=== PATIENT | female | born 1960 | race Caucasian/White ===

== ENCOUNTER 2018-12-10 06:57 | Day surgery (SDC) | payer BC ==
[~2018-12-10 06:57] MED LIST: CEFAZOLIN 2 Gram 2 GM/50 ML BAG IVPB ONE
[2018-12-10] MEDS ORDERED: MIDAZOLAM HCL 2MG/2ML VIAL IV ONE (06:58)
[2018-12-10] MEDS ORDERED: BUPIVACAINE LIPOSOME/PF 133MG/10ML VIAL IV ONE (06:58)
[2018-12-10] MEDS ORDERED: GLYCOPYRROLATE 0.2 MG/ML ML IV ONE (06:58)
[2018-12-10] MEDS ORDERED: BUPIVACAINE 0.5% (5MG/ML) PF 30ML VIAL IVP ONE (06:58)
[2018-12-10] MEDS ORDERED: DEXAMETHASONE 4 MG/ML 1ML VIAL IVP ONE (06:58)
[2018-12-10] MEDS ORDERED: LIDOCAINE 2% MDV (20MG/ML) 20ML VIAL IV ONE (06:58)
[2018-12-10] MEDS ORDERED: LABETALOL HCL 5MG/ML, 20ML VIAL IV ONE (06:58)
[2018-12-10] MEDS ORDERED: MORPHINE SULFATE PF 10MG/10ML *10ML VIAL IV ONE (06:58)
[2018-12-10] MEDS ORDERED: PROPOFOL 10 MG/ML VIAL IV ONE (06:58)
[2018-12-10] MEDS ORDERED: RINGERS SOLUTION,LACTATED 1,000 ML IV ONE (09:19)
[2018-12-10] MEDS ORDERED: BUPIVACAINE 0.5% W/EPI MPF 30 ML VIAL SQ ONE (10:03)
[2018-12-10] MEDS ORDERED: METHYLPREDNISOLONE 40MG/VIAL IU ONE (10:04)
[2018-12-10] MEDS ORDERED: MORPHINE SULFATE 5 MG/ML VIAL IM ONE (10:04)
--- NOTE | 2018-12-11 08:51 | Operative Note ---
DATE OF SURGERY: 12/10/2018 PREOPERATIVE DIAGNOSIS: Severe impingement, right shoulder. POSTOPERATIVE DIAGNOSES: 1. Complex superior glenohumeral labral tear. 2. Severe external impingement, right shoulder. 3. Advanced arthrosis, right distal clavicle. OPERATION: 1. Right shoulder arthroscopy with interarticular debridement. 2. Right shoulder open acromioplasty and CA ligament resection with subacromial bursectomy. 3. Right shoulder distal clavicle resection. STAFF SURGEON: Art Edmonds MD ANESTHESIA: Interscalene block with sedation. PREPARATION: Chloraprep. INDIVIDUAL CONSIDERATIONS: None. PROCEDURE: The patient was taken to the operating room, placed supine on the operating room table. She had a successful induction of a block. She was then placed in a semi-seated beach chair position and sedated. Her right arm and shoulder were prepped and draped in the usual fashion. Examination under anesthesia showed full passive motion and no instability. The patient had a posterior portal identified for arthroscopy. Skin was infiltrated with 0.5% Marcaine with epinephrine prior. An 18-gauge spinal needle was easily placed in the joint, and the joint was inflated with normal saline with a 60-mL syringe. A stab wound was made, and a blunt-tipped trocar for the scope was placed inside the joint. The joint was inflated with normal saline. An anterior accessory portal was then made just inferior to the intact long head of the biceps tendon in a retrograde fashion with a Wissinger rosaura, and the joint was irrigated out. The patient had an intact long head, intact subscap. Glenohumeral joint was normal. Fraying of the superior labrum was debrided with a shaver. No loose bodies. Some moderate synovitis anteriorly which was debrided. No loose bodies in the inferior pouch. The undersurface of the supraspinatus had some fraying but no distinct tear could be seen. The fraying was debrided with a shaver. After irrigation, portals were closed with singh. The patient had an anterior approach to the subacromial space and distal clavicle. Skin was infiltrated with 0.5% Marcaine with epinephrine prior. Sharp dissection carried down through skin and subcutaneous tissues. Small veins were coagulated with a Bovie. An anterior deltoid interval was developed. Care was taken not to split the deltoid more than about 4 cm distal to the anterior tip of the acromion to prevent injury to the axillary nerve. Once in the subacromial space, it was quite tight. The deltoid was then taken subperiosteally off the anterior aspect of the downsloping acromion with degeneration, over the top of the intact CA ligament, and off the anterior aspect of a highly degenerated acromioclavicular joint. CA ligament was resected with a Bovie. The advanced arthritic distal clavicle was resected taking about 8-9 mm. The patient had a huge spur with a downsloping anterior acromion with the spur directly digging into the rotator cuff. I did an acromioplasty taking a centimeter, most of this being a spur, and tapering towards posteromedially to include the spurs at the AC joint. The undersurface was smoothed with a rasp. A thick bursa was debrided out. I now had a good look at the rotator cuff. Basically, the biggest thing here was the anterior spur digging right into the anterior aspect of the supraspinatus. It was intact but had the appearance of being beaten with a meat tenderizing hammer! I now put the shoulder through a full range of motion to ensure no further impingement. After irrigation, the deltoid was reattached to the remaining acromion with multiple interrupted #2 Vicryl going directly through the bony acromion. The periosteal cuff of the distal clavicle was closed with running #2 Vicryl. Anterior deltoid interval was closed with running #1 Vicryl. Subcu was closed with 2-0 plus Vicryl and skin was closed with 3-0 quill. An 18-gauge spinal needle was introduced into the subacromial space. It was injected with 10 mL of 0.5% Marcaine with epinephrine along with 10 mg of morphine and 40 mg of Depo- Medrol. A sterile bulky compressive dressing and sling were applied. The patient tolerated the procedure well. Needle and sponge counts were correct. Estimated blood loss was minimal. She was taken back to recovery in good condition. There were no complications. NICOLE
== END 2018-12-10 11:20 | disposition home or self-care (01) ==
LOC: SUR 06:57
PROVIDERS: ATTEND Orthopaedic Surgery
DX: S43.431A Superior glenoid labrum lesion of right shoulder, initial encounter (principal); M19.011 Primary osteoarthritis, right shoulder; E78.00 Pure hypercholesterolemia, unspecified
CPT/HCPCS: 29822; 23120; 23415; 01630; 64415; J0690; C9290; J1030; J7120